=== PATIENT | female | born 1955 | race Two or more races ===

== ENCOUNTER 2024-10-04 11:22 | Emergency (ER) | payer OTHER ==
[~2024-10-04] VITALS: Ht 160 cm; Wt 67.1 kg
[~2024-10-04 11:22] MED LIST: ALPR0.25 PO; [UNRECOGNIZED DRUG - REMARK]
[2024-10-04 11:38] VITALS: TEMP 98.1
[2024-10-04] MEDS ORDERED: ONDANSETRON HCL/PF 4 MG/2 ML VIAL ONE ×2 (12:00→12:08)
[2024-10-04] MEDS ORDERED: FAMOTIDINE/PF INJ 20 MG/2 ML VIAL IV ONE (12:00)
[2024-10-04] MEDS: IV NS 0.9% 1,000 ML BAG IV ONE (12:05)
[2024-10-04] MEDS: ONDANSETRON HCL/PF 4 MG/2 ML VIAL IVP ONE (12:07)
[2024-10-04] MEDS: FAMOTIDINE/PF INJ 20 MG/2 ML VIAL IV ONE (12:10)
[2024-10-04 12:28] LABS: ALANINE AMINOTRANSFERASE 31 U/L (12-78); ALKALINE PHOSPHATASE 79 U/L (46-116); ASPARTATE AMINOTRANSFERASE 21 U/L (15-37); BILIRUBIN,DIRECT 0.1 mg/dL (0.0-0.2); BILIRUBIN,TOTAL 0.5 mg/dL (0.2-1.0); CALCIUM, SERUM 9.1 mg/dL (8.5-10.1); CARBON DIOXIDE 30 mmol/L (21-32); CHLORIDE 105 mmol/L (98-107); CREATININE 0.9 mg/dL (0.6-1.3); GLUCOSE 116 mg/dL (74-106); LIPASE 62 U/L (16-77); POTASSIUM 4.7 mmol/L (3.5-5.1); SODIUM SERUM 140 mmol/L (136-145); TOTAL PROTEIN, SERUM 7.9 g/dL (6.4-8.2); UREA NITROGEN, BLOOD 21 mg/dL (7-18)
[2024-10-04 12:52] LABS: BASOPHILS % (AUTO) 0.1 % (0.0-2.0); EOSINOPHILS # (AUTO) 0.1 K/uL (0.0-0.7); EOSINOPHILS % (AUTO) 0.9 % (0.0-6.0); HEMATOCRIT 49 % (33-45); HEMOGLOBIN 16.2 g/dL (11.5-14.8); LYMPHOCYTES # (AUTO) 0.4 K/uL (0.8-4.8); LYMPHOCYTES % (AUTO) 3.8 % (20.0-44.0); MEAN CORPUSCULAR HEMOGLOBIN 29 PG (26.0-33.0); MEAN CORPUSCULAR HGB CONC 33 g/dl (31.0-36.0); MEAN CORPUSCULAR VOLUME 86 fL (82-100); MONOCYTES # (AUTO) 0.3 K/uL (0.1-1.30); MONOCYTES % (AUTO) 2.9 % (2.0-12.0); NEUTROPHILS # (AUTO) 9.9 K/uL (1.8-8.9); NEUTROPHILS % (AUTO) 92.3 % (43.0-81.0); PLATELET COUNT (AUTO) 249 K/uL (150-450); RED BLOOD CELL COUNT(AUTO) 5.69 MIL/uL (4.0-5.2); RED CELL DISTRIBUTION WIDTH 14.5 % (11.5-15.0); WHITE BLOOD COUNT (AUTO) 10.7 K/uL (4.3-11.0)
[2024-10-04] MEDS ORDERED: ONDA4TAB5 PO (13:02)
[2024-10-04 13:33] VITALS: BP 115/75; O2SAT 98
== END 2024-10-04 13:20 | disposition home or self-care (01) ==
LOC: ER 11:22
DX: R11.2 Nausea with vomiting, unspecified (principal); R19.7 Diarrhea, unspecified; F17.200 Nicotine dependence, unspecified, uncomplicated; F41.9 Anxiety disorder, unspecified; I10 Essential (primary) hypertension
CPT/HCPCS: 99284; 96374; 96361; 96375; 93005; 85025; 80048; 83690; 80076; 36415; 84484; 82962; J3490; J2405 ×2; J7030